=== PATIENT | female | born 1985 | race Two or more races ===

== ENCOUNTER → 2025-05-22 | Outpatient (CLI) | payer MEDICAID, SELFPAY ==
--- NOTE | 2025-05-22 10:15 | XR_ITS ---
Examination: Breast ultrasound complete, bilateral Date and time of exam: May 22, 2025 1045 hours INDICATIONS: Palpable lump left breast note is beginning 3 months ago Technique: Real-time grayscale ultrasonographic imaging bilateral breasts, including all 4 quadrants as well as nipple retroareolar and axillary regions. Findings: No cystic or solid mass involving either breast IMPRESSION: BI-RADS Category 1: Negative study Recommend repeat left breast sonography in 3 months if palpable abnormality remains
--- NOTE | 2025-05-22 11:15 | XR_ITS ---
Examination: Diagnostic digital mammography, bilateral Computer aided detection 3-D breast Tomosynthesis, bilateral Date and time of exam: May 22, 2025 1037 hours INDICATIONS: Palpable lump left breast noted beginning 4 months ago Technique: Nonmagnified MLO, CC views of the breasts to been obtained, reconstructed from 3-D Tomosynthesis images. R2 computer aided detection program utilized for evaluation of suspicious masses and/or abnormal calcifications. 3-D Tomosynthesis images obtained. Findings: Scattered areas of fibroglandular density. Benign calcifications No suspicious masses Impression: BI-RADS Category 2: Benign findings Recommend yearly follow-up mammography.
== END | disposition home or self-care (01) ==
LOC: CDIM 10:08
DX: R92.323 Mammographic fibroglandular density, bilateral breasts (principal); R92.1 Mammographic calcification found on diagnostic imaging of breast
CPT/HCPCS: 76641; 77062; 77066; G0279